=== PATIENT | female | born 1940 | race Caucasian/White ===

== ENCOUNTER 2022-11-19 20:34 | Emergency (ER) | payer MEDICARE, OTHER ==
[2022-11-19] MEDS: Lidocaine 1% 5 ML VIAL INJECT ONE (21:03)
[2022-11-19] MEDS: Diphtheria/Tetanus Toxoids,Adult (Td) 0.5 ML SDV IM ONE (21:04)
[2022-11-19] MEDS: Lidocaine 1% with EPINEPHrine 1:100,000 20 ML MDV ONE (21:04)
[2022-11-19] MEDS: Lidocaine 1% with EPINEPHrine 1:100,000 20 ML MDV INJECT ONE (21:04)
[2022-11-19 22:03] VITALS: BP 147/60; PULSE 75
== END 2022-11-19 23:30 | disposition home or self-care (01) ==
LOC: CC.ED 20:34
DX: S01.81XA Laceration without foreign body of other part of head, initial encounter (principal); E78.00 Pure hypercholesterolemia, unspecified; I10 Essential (primary) hypertension; K21.9 Gastro-esophageal reflux disease without esophagitis; E11.9 Type 2 diabetes mellitus without complications; E03.9 Hypothyroidism, unspecified; E66.9 Obesity, unspecified; Z68.24 Body mass index [BMI] 24.0-24.9, adult; Z88.5 Allergy status to narcotic agent; Z88.8 Allergy status to other drugs, medicaments and biological substances; Z79.82 Long term (current) use of aspirin; Z79.899 Other long term (current) drug therapy; Z23 Encounter for immunization; W18.30XA Fall on same level, unspecified, initial encounter
CPT/HCPCS: 12013; 70450; 71045; 72125; 90471; 90714; 99283; 99284-25; J3490

== ENCOUNTER 2023-12-27 14:26 | Emergency (ER) | payer MEDICARE, OTHER ==
[2023-12-27] MEDS: LORazepam 2 MG/ML SDV IVPUSH ONE ×2 (15:14→16:17)
[2023-12-27 15:18] LABS: BASOPHILS ABSOLUTE AUTO 0.06 10^3/uL (0.00-0.50); BASOPHILS PERCENT AUTO 0.5 % (0-1); EOSINOPHILS ABSOLUTE AUTO 0.03 10^3/uL (0.00-1.50); EOSINOPHILS PERCENT AUTO 0.3 % (0-6); HEMATOCRIT 36.3 % (37.0-47.0); HEMOGLOBIN 12.2 g/dL (12.0-16.0); IMMATURE GRAN ABSOLUTE AUTO 0.01 10^3/uL (0.00-0.49); IMMATURE GRAN PERCENT AUTO 0.1 % (0.0-4.9); LYMPHOCYTES ABSOLUTE AUTO 1.73 10^3/uL (0.60-5.00); LYMPHOCYTES PERCENT AUTO 15.4 % (24-44); MEAN CORPUSCULAR HEMOGLOBIN 33.2 pg (27.0-32.0); MEAN CORPUSCULAR HGB CONC 33.6 g/dL (32.0-36.0); MEAN CORPUSCULAR VOLUME 98.6 fL (83.0-97.0); MONOCYTES ABSOLUTE AUTO 0.86 10^3/uL (0.00-1.50); MONOCYTES PERCENT AUTO 7.7 % (0-10); NEUTROPHILS ABSOLUTE AUTO 8.52 x10^3/uL (1.80-8.00); PLATELET COUNT,PLT 244 10^3/uL (150-400); RED BLOOD CELL COUNT 3.68 x10^6/uL (4.00-5.50); WHITE BLOOD CELL COUNT,WBC 11.2 10^3/uL (4.0-11.0)
[2023-12-27 15:30] LABS: ALANINE AMINOTRANSFERASE,ALT 7 U/L (12-78); ALBUMIN 3.7 g/dL (3.4-5.0); ALKALINE PHOSPHATASE 88 U/L (46-116); ASPARTATE AMNIOTRANSFERASE,AST 14 U/L (15-37); BILIRUBIN TOTAL 0.5 mg/dL (0.0-1.0); BLOOD UREA NITROGEN,BUN 46 mg/dL (7-18); CALCIUM 9.6 mg/dL (8.4-10.1); CARBON DIOXIDE,CO2 29 mmol/L (21-32); CHLORIDE,CL 105 mEq/L (98-106); CREATININE 1.1 mg/dL (0.6-1.0); GLUCOSE RANDOM 201 mg/dL (75-99); POTASSIUM,K 4.7 mEq/L (3.5-5.0); PROTEIN TOTAL,TP 7.5 g/dL (6.4-8.2); SODIUM,NA 146 mEq/L (136-145)
[2023-12-27 15:35] LABS: C-REACTIVE PROTEIN < 0.50 mg/dL (<=0.50); ESTIMATED GFR 50 mL/min (>=60)
[2023-12-27 15:46] LABS: APPEARANCE,URINE CLOUDY (CLEAR); BILIRUBIN,URINE NEGATIVE (NEGATIVE); COLOR,URINE YELLOW (YELLOW); GLUCOSE,URINE NEGATIVE (NEGATIVE); KETONES,URINE TRACE mg/dL (NEGATIVE); LEUKOCYTE ESTERASE,URINE MODERATE (NEGATIVE); NITRITE,URINE NEGATIVE (NEGATIVE); OCCULT BLOOD,URINE SMALL (NEGATIVE); PH,URINE 6.5 (4.5-8.0); PROTEIN,URINE 30 mg/dL (NEGATIVE); UROBILINOGEN,URINE 0.2 EU/dL (0.2-1.0)
[2023-12-27 15:51] LABS: BACTERIA,URINE MANY /HPF (NOT SEEN); WBC,URINE >100 /HPF (0-5)
[2023-12-27 16:18] LABS: CORONAVIRUS COVID-19 NAA NEGATIVE (NEGATIVE); INFLUENZA A NAA NEGATIVE (NEGATIVE); INFLUENZA B NAA NEGATIVE (NEGATIVE)
[2023-12-27] MEDS: cefTRIAXone 1 GM Vial IVPUSH ONE (16:19)
[2023-12-27] MEDS: Sodium Chloride 0.9% 1,000 ML IV ONE (16:21)
[2023-12-27] MEDS: Pantoprazole 40 MG Vial IVPUSH ONE (16:21)
[2023-12-27 17:32] VITALS: BP 167/79; PULSE 103
[2023-12-27] MEDS: Take Home: Sulfamethoxazole/Trimethoprim 800-160 MG Tab, 6 Tab Pack PO ONE (17:56)
[2023-12-27] MEDS: Take Home: Ondansetron 4 MG Tab.DIS, 2 Tab Pack PO ONE (17:56)
[2023-12-29] MEDS: Iopamidol 755 Mg/ML 100 ML Bottle IVPUSH ONE (08:40)
== END 2023-12-27 18:50 | disposition home or self-care (01) ==
LOC: CC.ED 14:26
DX: N39.0 Urinary tract infection, site not specified (principal); I10 Essential (primary) hypertension; E78.00 Pure hypercholesterolemia, unspecified; K21.9 Gastro-esophageal reflux disease without esophagitis; E11.9 Type 2 diabetes mellitus without complications; E03.9 Hypothyroidism, unspecified; E66.9 Obesity, unspecified; Z79.82 Long term (current) use of aspirin; Z79.899 Other long term (current) drug therapy; Z88.8 Allergy status to other drugs, medicaments and biological substances; Z88.5 Allergy status to narcotic agent; Z68.25 Body mass index [BMI] 25.0-25.9, adult
CPT/HCPCS: 0240U; 36415; 74177; 80053; 81001; 82271; 82272; 85025; 86140; 87086; 87088; 87186; 96361; 96374; 96375; 96376; 99284-25; A9270-GY; J0696; J2060; J2470; J7030; Q9967